=== PATIENT | female | born 1980 | race American Indian/Alaskan Native ===

== ENCOUNTER 2018-08-24 17:16 | Emergency (ER) | payer SELFPAY ==
[2018-08-24] MEDS ORDERED: IBUPROFEN PO ONE (17:58)
[2018-08-24] MEDS ORDERED: THERMAZENE 50 GRAM TP ONE (17:58)
--- NOTE | 2018-08-24 18:00 | Event Note ---
ED Screening Note ED Screening Note: SP FALL AT THE CLUB ABRASION L KNEE This initial assessment/diagnostic orders/clinical plan/treatment(s) is/are subject to change based on patients health status, clinical progression and re- assessment by fellow clinical providers in the ED. Further treatment and workup at subsequent clinical providers discretion. Patient/guardian urged not to elope from the ED as their condition may be serious if not clinically assessed and managed. Initial orders include: XR WOUND CARE
[2018-08-24 18:03] VITALS: BP 119/75
--- NOTE | 2018-08-24 18:42 | XRay Report ---
Left knee 3 views 1830 INDICATION: Fall, prior history of ACL repair No fractures or dislocations are seen. Prior surgical changes are noted. Moderate tricompartment dege nerative changes are seen. No definite joint effusion is noted. Signer Name: Arash Bagley MD Signed: 08/24/2018 6:37 PM Workstation Name: [id number]
--- NOTE | 2018-08-24 20:39 | Emergency Department Report ---
ED Lower Extremity HPI - General Chief Complaint: Extremity Injury, Lower Stated Complaint: LT KNEE INJURY Time Seen by Provider: 08/24/18 17:58 Source: patient Mode of arrival: Ambulatory Limitations: No Limitations - History of Present Illness Initial Comments: pt is a 37 y/o aaf who presents for left knee pain s/p glf yesterday with abrasion knee pain is 5/10 aching pt remains ambulatory to baseline there is no bleedign or deformity MD Complaint: knee injury Onset/Timin -: days(s) Injury: Knee: Left Type of Injury: blunt Place: home Severity: moderate Severity scale (0 -10): 4 Improves With: nothing Worsens With: weight bearing, movement, palpation Context: fall Associated Symptoms: swelling, ambulatory - Related Data Previous Rx's Medication Instructions Recorded Last Taken Type Cyclobenzaprine [Flexeril] 10 mg PO TID PRN #30 tablet 08/24/18 Unknown Rx Menthol/Camphor [Bethany Sheridan 1 applicatio TP QID PRN #1 tube 08/24/18 Unknown Rx Ointment] Naproxen [Naprosyn] 500 mg PO BID PRN #30 tablet 08/24/18 Unknown Rx Allergies Allergy/AdvReac Type Severity Reaction Status Date / Time No Known Allergies Allergy Unverified 08/24/18 17:19 ED Review of Systems ROS: Stated complaint: LT KNEE INJURY Other details as noted in HPI Constitutional: denies: chills, fever Eyes: denies: eye pain, eye discharge, vision change ENT: denies: ear pain, throat pain Respiratory: denies: cough, shortness of breath, wheezing Cardiovascular: denies: chest pain, palpitations Endocrine: no symptoms reported Gastrointestinal: denies: abdominal pain, nausea, diarrhea Genitourinary: denies: urgency, dysuria, discharge Musculoskeletal: joint swelling, other (knee abrasion) Skin: denies: rash, lesions Neurological: denies: headache, weakness, paresthesias Psychiatric: denies: anxiety, depression Hematological/Lymphatic: denies: easy bleeding, easy bruising ED Past Medical Hx - Past Medical History Previous Medical History?: No - Surgical History Past Surgical History?: Yes Additional Surgical History: knee sx - Social History Smoking Status: Unknown if ever smoked - Medications Home Medications: Home Medications Medication Instructions Recorded Confirmed Last Taken Type Cyclobenzaprine [Flexeril] 10 mg PO TID PRN #30 tablet 08/24/18 Unknown Rx Menthol/Camphor [Bethany Sheridan 1 applicatio TP QID PRN #1 tube 08/24/18 Unknown Rx Ointment] Naproxen [Naprosyn] 500 mg PO BID PRN #30 tablet 08/24/18 Unknown Rx ED Physical Exam - General Limitations: No Limitations General appearance: alert, in no apparent distress - Head Head exam: Present: atraumatic, normocephalic - Eye Eye exam: Present: normal appearance, PERRL, EOMI Pupils: Present: normal accommodation - ENT ENT exam: Present: mucous membranes moist - Neck Neck exam: Present: normal inspection, full ROM. Absent: tenderness, meningismus, lymphadenopathy, thyromegaly - Respiratory Respiratory exam: Present: normal lung sounds bilaterally. Absent: respiratory distress, wheezes, chest wall tenderness - Cardiovascular Cardiovascular Exam: Present: regular rate, normal rhythm, normal heart sounds. Absent: systolic murmur, diastolic murmur, rubs, gallop - GI/Abdominal GI/Abdominal exam: Present: soft, normal bowel sounds. Absent: distended, tenderness, bruit, hernia - Rectal Rectal exam: Present: deferred - Extremities Exam Extremities exam: Present: full ROM, tenderness (left anterior knee abrasion 2x3 cm no bleeding no deformity rom intact unrestricted gait is steady ), normal capillary refill. Absent: pedal edema, joint swelling - Expanded Lower Extremity Exam Left Knee exam: Present: tenderness, abrasion, full knee extension. Absent: swelling, laceration, ecchymosis, deformity, crepidus, dislocation, erythema, effusion, pain w/ pronation/supination, posterior draw sign, pain/laxity with valgus, pain/laxity with varus Lower Leg exam: Present: full ROM. Absent: tenderness Ankle exam: Present: full ROM. Absent: tenderness Foot/Toe exam: Present: full ROM. Absent: tenderness Neuro vascular tendon exam: Present: no vascular compromise. Absent: pulse deficit, motor deficit, sensory deficit, tendon deficit Gait: Positive: observed and normal - Back Exam Back exam: Present: normal inspection, full ROM. Absent: tenderness, CVA tenderness (R), CVA tenderness (L), muscle spasm, paraspinal tenderness, rash noted - Neurological Exam Neurological exam: Present: alert, oriented X3, CN II-XII intact, normal gait, reflexes normal. Absent: motor sensory deficit - Psychiatric Psychiatric exam: Present: normal affect, normal mood - Skin Skin exam: Present: warm, dry, intact, normal color. Absent: rash ED Course Vital Signs 08/24/18 08/24/18 17:56 19:35 Temperature 98.4 F Pulse Rate 89 Respiratory 18 18 Rate Blood Pressure 119/75 Blood Pressure 119/75 [Right] O2 Sat by Pulse 99 Oximetry ED Lower Extremity MDM - Radiology Data Radiology results: report reviewed, image reviewed Ordering Physician: GREGORIO LAURENT Date of Service: 08/24/18 Procedure(s): XR knee 3V LT Accession Number(s): [id number] cc: GREGORIO LAURENT Fluoro Time In Minutes: Left knee 3 views 1829 INDICATION: Fall, prior history of ACL repair No fractures or dislocations are seen. Prior surgical changes are noted. Moderate tricompartment degenerative changes are seen. No definite joint effusion is noted. Signer Name: Arash Bagley MD Signed: 08/24/2018 6:37 PM Workstation Name: [id number] Transcribed By: GJ Dictated By: Arash Bagley MD Electronically Authenticated By: Arash Bagley MD Signed Date/Time: 08/24/181836 DD/ 36 TD/TT: - Medical Decision Making xray knee degenerative changes , small abrasion plan: nsaids , muscle relaxants, analgesic balm pt will use otc neosporin and wound care pt will follow up with pcp in 2-3 days return to emergency if symptoms worsen, pt verbalized agreement and understanding of discharge plan. pt dc'd to home in stable condition at this time. Critical care attestation.: If time is entered above; I have spent that time in minutes in the direct care of this critically ill patient, excluding procedure time. ED Disposition Clinical Impression: Strain of knee Qualifiers: Encounter type: initial encounter Laterality: left Qualified Code(s): S86.912A - Strain of unspecified muscle(s) and tendon(s) at lower leg level, left leg, initial encounter Arthralgia Qualifiers: Joint pain location: knee Laterality: left Qualified Code(s): M25.562 - Pain in left knee Disposition: - TO HOME OR SELFCARE Is pt being admited?: No Does the pt Need Aspirin: No Condition: Stable Instructions: Abrasion (ED), Knee Exercises (GEN), Knee Sprain (ED) Prescriptions: Cyclobenzaprine [Flexeril] 10 mg PO TID PRN #30 tablet PRN Reason: Muscle Spasm Naproxen [Naprosyn] 500 mg PO BID PRN #30 tablet PRN Reason: pain Menthol/Camphor [Bethany Sheridan Ointment] 1 applicatio TP QID PRN #1 tube PRN Reason: pain Referrals: KRISTOPHER LOVING MD [Staff Physician] - 3-5 Days Forms: Work/School Release Form(ED) Time of Disposition: 20:48
== END 2018-08-24 20:50 | disposition home or self-care (01) ==
LOC: ED 17:16
DX: S86.912A Strain of unspecified muscle(s) and tendon(s) at lower leg level, left leg, initial encounter (principal); Z98.890 Other specified postprocedural states; X58.XXXA Exposure to other specified factors, initial encounter; Y93.89 Activity, other specified; Y92.009 Unspecified place in unspecified non-institutional (private) residence as the place of occurrence of the external cause; Y99.8 Other external cause status